=== PATIENT | male | born 1980 | race Caucasian/White ===

== ENCOUNTER 2016-08-16 00:50 | Emergency (ER) | payer OTHER ==
[2016-08-16 01:30] LABS: BILIRUBIN NEGATIVE (NEGATIVE); BLOOD NEGATIVE Ery/uL (NEGATIVE); CLARITY CLEAR (CLEAR); COLOR YELLOW (YELLOW); GLUCOSE (U) NORMAL (NORMAL); KETONE (U) NEGATIVE (NEGATIVE); LEUKOCYTES NEGATIVE Leu/uL (NEGATIVE); NITRITE NEGATIVE (NEGATIVE); PROTEIN NEGATIVE (NEGATIVE); SPECIFIC GRAVITY >=1.030 (1.001-1.030); UROBILINOGEN 0.2 mg/dL (0.2-1.0); pH 5.5 (5.0-9.0)
[2016-08-16 01:45] LABS: BASOPHIL 0.3 % (0-2); EOSINOPHIL 0.3 % (0-5); HCT 44.9 % (42.0-52.0); HGB 16.5 g/dl (13.2-18.0); LYMPHOCYTE 10.1 % (15-48); MCH 30.7 pg (25.0-31.0); MCHC 36.7 g/dL (32.0-36.0); MCV 83.5 fL (78.0-100.0); MONOCYTE 8.8 % (0-12); MPV 9.9 fL (6.0-9.5); NEUTROPHIL 80.5 % (41-80); PLT 171 K/uL (150-400); RBC 5.38 M/uL (4.70-6.00); WBC 6.1 K/uL (4.0-10.5)
[2016-08-16 02:06] LABS: ALBUMIN 4.4 g/dL (3.5-5.0); BILIRUBIN - TOTAL 0.6 mg/dL (0.1-1.0); GLOBULIN (CALCULATION) 2.7 g/dL (2.2-4.2); POTASSIUM 3.3 mmol/L (3.5-5.1); TOTAL PROTEIN 7.1 g/dL (6.4-8.3)
[2016-08-16 02:46] LABS: INR 1.11 (0.9-1.2); PROTHROMBIN TIME 13.9 SECONDS (11.7-14.0); PTT 29.6 SECONDS (23.2-31.4)
== END 2016-08-16 04:43 | disposition home or self-care (01) ==
LOC: FER 00:50
PROVIDERS: Emergency Medicine Emergency Medical Services
DX: R50.9 Fever, unspecified (principal); R41.0 Disorientation, unspecified; R51 Headache
CPT/HCPCS: 36415; 70450; 71010; 80053; 81003; 83690; 85025; 85610; 85730; 86308; 87040; 87804; 87899; J1885; J2405